=== PATIENT | female | born 1980 | race Caucasian/White ===

== ENCOUNTER 2017-03-08 14:35 | Emergency (ER) | payer SELFPAY ==
[~2017-03-08 14:35] MED LIST: A/T/S 2% GEL30 GM OD; ASACOL400 MG PO; FLAGYL PO; PEN-VEE K PO; VICODIN 5/500 T1 TAB PO
== END 2017-03-08 18:22 | disposition left against medical advice (07) ==
LOC: CED 14:35
DX: Z53.21 Procedure and treatment not carried out due to patient leaving prior to being seen by health care provider (principal)

== ENCOUNTER 2017-04-13 08:42 | Emergency (ER) | payer SELFPAY ==
--- NOTE | ~2017-04-13 | CR63 ---
[facility] A Service of [facility] RADIOLOGY TEXT RESULTS PATIENT: LIT MALLORY LOCATION: [facility] : 84 UNIT #: [id number] AGE: [address]: Radha Tong APRN SEX: F ORDER DR: [id number] [facility] [address] [place], [place] [address] [id number] MR#: [id number] Acc #: [id number] NAME: LIT MALLORY : 1980 SEX: F STUDY DATE/TIME: 04/13/2017 9:38 UNIT: [facility] ROOM: STUDY DESCRIPTION: CR Chest 2 View Attending Physician: Radha Tong A.P.R.N. Ordering Physician: Ed Doctor [id number] [facility] Primary Care Physician: Primary Care Physician No MEDICAL IMAGING REPORT This report is preliminary unless electronic signature is present EXAM Chest PA and lateral, 04/13/2017 HISTORY Right side chest pain and shortness breath for 4 days status post fall. FINDINGS PA and lateral examination of the chest upright shows a good expansion of the parenchyma with a normal distribution of the pulmonary vascularity. There is no indication of congestion, effusion, infiltrate, tumor, or nodular density. The pleural reflections and diaphragmatic contours are normal. The cardiac silhouette and mediastinal anatomy is within normal limits. IMPRESSION Normal chest. Dictated by... Wood Green M.D. THIS IS AN ELECTRONICALLY VERIFIED REPORT Wood Green M.D. at 04/14/2017 8:06 AM Jamal TD: 04/13/2017 10:27 JOB #: [id number] MEDICAL IMAGING REPORT Page 1 of 1 COPY
== END 2017-04-13 18:17 | disposition home or self-care (01) ==
LOC: CED 08:42
DX: S20.211A Contusion of right front wall of thorax, initial encounter (principal); Z87.442 Personal history of urinary calculi; W18.30XA Fall on same level, unspecified, initial encounter; Y93.01 Activity, walking, marching and hiking; Y92.410 Unspecified street and highway as the place of occurrence of the external cause
CPT/HCPCS: 71020; 99283